=== PATIENT | female | born 1980 | race Caucasian/White ===

== ENCOUNTER → 2020-08-24 | Outpatient (CLI) | payer OTHER ==
[2019-05-16 15:59] VITALS: BP 110/56
[~2020-08-24] MED LIST: ACET325T9 PO; DOCU-153 PO; no home meds
--- NOTE | 2020-08-24 14:32 | RAD ---
PROCEDURE: US BREAST BILAT, MG DIAGNOSTIC BILAT HISTORY: The patient is 40 years old and is seen for palpable abnormality. COMPARISON: January 02, 2015 TECHNIQUE: CC and MLO views of both breasts were obtained. Images were processed by the [employer] computer-aided detection system. Targeted ultrasound was performed of the bilateral breasts. DENSITY: The breast parenchyma is heterogeneously dense. This may lower the sensitivity of mammograph y. FINDINGS: Right mammogram: Small rounded mass within the right breast retroareolar mid depth on MLO view. Right breast ultrasound: Cyst within the right breast 12:00 position 1 cm from the nipple measures 0. 7 cm corresponding with mammogram. Left breast mammogram: Well-circumscribed mass within the left breast corresponding with patient's pr obable concern measures approximately 2.4 x 2.0 cm 12:00 position, new compared to 2014. Left breast ultrasound: Solid hypoechoic mass within the left breast 12:00 position approximately 6 c m from the nipple with increased vascularity. There are angular margins. IMPRESSION: Solid hypoechoic left breast mass. Recommend ultrasound-guided biopsy to further evaluate. Results were discussed with the patient at time of study. Recommend ultrasound guided core needle biopsy. BI-RADS category 4 Findings suspicious for malignancy Our clinic nurse has been instructed to assist with communicating findings and recommendations to the patient's referring physician and in scheduling follow-up. Patient entered into a reminder system for annual screening mammogram. Electronically signed by: Jerardo Payton DO (08/24/2020 2:30 PM) [id number]
== END ==
LOC: MAMMO 14:39
PROVIDERS: ATTEND Family Medicine
DX: N63.22 Unspecified lump in the left breast, upper inner quadrant (principal); N64.59 Other signs and symptoms in breast
CPT/HCPCS: 77066; 76641-50

== ENCOUNTER → 2020-09-18 | Outpatient (CLI) | payer OTHER ==
[2019-05-16 15:59] VITALS: BP 110/56
--- NOTE | 2020-09-18 11:31 | RAD ---
EXAM: Sonographic guided left breast biopsy; left breast biopsy clip placement; left breast postbiops y mammogram. HISTORY: 40-year-old female presents for sonographic guided biopsy of a mass within the 12:00 positio n of the left breast demonstrated on a sonogram performed 08/24/2020. TECHNIQUE: The risks of the procedure discussed with the patient and written and verbal consent was o btained. A timeout was performed. Sonographic imaging of the left breast was performed and the lesion of concern measuring 2.7 cm at the 12:00 position 6 cm from nipple was identified. The skin overlyin g this region was sterilely prepped, draped and infiltrated with 1 percent lidocaine. Multiple core s amples were obtained through the lesion of concern with sonographic guidance. A biopsy clip was advan shirin into the lesion. Manual compression was maintained until hemostasis was achieved. A sterile arevalo ge was placed. A post biopsy mammogram demonstrates the biopsy clip in expected position. The patient tolerated the procedure without complication and was discharged in stable condition. IMPRESSION: Successful sonographic guided biopsy of a mass within the 12:00 position of the left karen st and biopsy clip placement. An addendum to this report will be submitted when pathology results are available. Electronically signed by: Vera Campbell MD (09/18/2020 11:29 AM) [id number]
--- NOTE | 2020-09-20 17:08 | PATHOLOGY ---
[facility] Accession Number: [id number] . 01 Material submitted: . breast - LEFT BREAST MASS. Modifiers: left, 12:00, 6 CM FROM NIPPLE . 01 Clinical history: . LEFT BREAST MASS 1200 6CM FROM NIPPLE 2.7CM LEFT BREAST BIOPSY . 02 Diagnosis: Breast "left mass 12:00, 6 CM FN", needle biopsy: - Fibroepithelial lesion. - Usual ductal hyperplasia. - Please see comment. (MLK:yasmany; 09/19/2020) QMS 09/20/2020 1604 Local . 02 Comment: The breast biopsy shows a proliferation of both stromal and glandular elements, with focal areas of usual ductal hyperplasia. The differential diagnosis includes fibroadenoma versus, less likely, a phyllodes tumor. Complete excision of the lesion may be of benefit to exclude the more aggressive lesion. . The case is seen in co-review with Dr. Julia Santiago, who concurs with the above diagnosis. . 02 Diagnosis provided by: . Kai Tellez MD, Pathologist NPI- [id number] . 03 Electronically signed: . Kai Tellez MD, Pathologist NPI- [id number] . 01 Gross description: . The specimen is received in formalin, labeled "Liss Beltran, left breast 12:00 6 cm from nipple". Received are multiple needle cores of fibrofatty tissue measuring 1.0 x 1.0 x 0.2 cm in aggregate dimensions. The specimen is submitted entirely in cassettes A1 through A3. The cold ischemic time is 1 minute. The total formalin fixation time is 11 hours and 1 minute. (CAA; 09/18/2020) QAC/QAC 09/18/2020 1547 Local . 02 Pathologist provided ICD-10: D24.2, N62 . 02 CPT . 618614 Specimen Comment: A courtesy copy of this report has been sent to [phone] Specimen Comment: [id number] Specimen Comment: Report sent to DR WILSON / DR MEADOWS Performed at: [facility] [place] [address] [id number] MD Francisco Treadwell MD Phone: [phone] Performed at: 02 [facility] [address] [place], [place] [id number] MD Cedric Spencer MD Phone: [phone] Performed at: 03 [facility] [address] [id number] MD Deep Rodriguez MD Phone: [phone]
== END | disposition home or self-care (01) ==
LOC: US 10:16
PROVIDERS: ATTEND Family Medicine
DX: N63.22 Unspecified lump in the left breast, upper inner quadrant (principal); R92.8 Other abnormal and inconclusive findings on diagnostic imaging of breast; Z90.49 Acquired absence of other specified parts of digestive tract; Z98.890 Other specified postprocedural states; Z79.899 Other long term (current) drug therapy; Z88.2 Allergy status to sulfonamides; Z88.5 Allergy status to narcotic agent
CPT/HCPCS: 19083; 77065; A4648

== ENCOUNTER 2021-02-26 07:50 | Day surgery (SDC) | payer OTHER ==
[~2021-02-26] VITALS: Ht 167.6 cm; Wt 155.0 kg
[~2021-02-26 07:50] MED LIST changes: +DOCU-148 PO; -DOCU-153 PO; +ETON1VAG VG; +HYDROmorphone 2 MG/ML VIAL IVP PRN; +IV RINGERS,LACTATED 1000ML 1,000 ML IV SCH; +MORPHINE SULFATE 2 MG/ML INJ. IVP PRN; +PROCHLORPERAZINE 10 MG/2 ML VIAL. IVP PRN; +fentaNYL PF VIAL 100 MCG/2 ML VIAL IVP PRN
[2021-02-26] MEDS ORDERED: ONDANSETRON PF 4 MG/2 ML VIAL. ONE (09:49)
[2021-02-26] MEDS ORDERED: DEXAMETHASONE SOD PHOS 4 MG/ML VIAL ONE ×2 (09:49→10:25)
[2021-02-26] MEDS ORDERED: MIDAZOLAM HCL/PF 2 MG/2 ML VIAL. ONE (09:49)
[2021-02-26] MEDS ORDERED: PROTAMINE 50 MG/5 ML VIAL. IV ONE (09:49)
[2021-02-26] MEDS ORDERED: LIDOCAINE 2% PF 5 ML VIAL. ONE (09:49)
[2021-02-26] MEDS ORDERED: SEVOFLURANE 61 TO 120 MINUTES. IH ONE (10:25)
[2021-02-26] MEDS ORDERED: fentaNYL PF VIAL 100 MCG/2 ML VIAL ONE (10:25)
[2021-02-26] MEDS ORDERED: PROPOFOL 10 MG/ML (20ML) VIAL. IV ONE (10:34)
[2021-02-26] MEDS ORDERED: BUPIVACAINE-EPI 0.5%-1:200000 MPF 30 ML VIAL. INJ ONE (10:50)
--- NOTE | 2021-02-26 11:00 | PDOC4 ---
Operative Note Operative Note Operative Note: Preoperative Diagnosis: Left breast mass Postoperative Diagnosis: Same Procedure: Left breast excisional biopsy Surgeon: Osmar Garment Examiner: ESTHER King Anesthesia: General EBL: 10 mL Specimen: Left breast mass to pathology, 3X3 cm Drains: None Complications: None Indication: The patient is a 40-year-old female who is referred following a recent core needle biopsy of left breast mass. This described a fibroepithelial lesion consistent with a fibroadenoma. However phyllodes tumor could not be ruled out and she was referred for consideration of an excisional biopsy. The risks of surgery were discussed which include bleeding, infection, recurrence, pain, anesthetic risk, potential need for additional surgery procedure. She understands and would like to proceed. Description: The patient was taken to the operating room and placed supine on the operating table. General anesthesia was performed. The left breast was prepped with ChloraPrep and draped in a standard surgical manner. An incision was made at the 12 o'clock position overlying the mass. Cautery dissection was carried down into the breast parenchyma. The mass was readily identified and mobilized from the surrounding tissues with a combination of cautery and sharp dissection. The mass was then fully excised and measured 3 x 3 cm. The specimen was sent to pathology for evaluation. Hemostasis was achieved with cautery. The subcutaneous tissue was closed with 3-0 Vicryl. The skin was approximated with 4-0 Monocryl and infiltrated with half percent Marcaine with epinephrine. Steri-Strips and a sterile dressing were applied. The patient tolerated the procedure well and was sent to the recovery room in stable condition. At the end of the case all counts were correct. JOSE ZURITA MD Feb 26, 2021 11:00
[2021-02-26] MEDS ORDERED: HYDR-2761 PO (11:01)
--- NOTE | 2021-02-26 11:03 | DISCH ---
DISCHARGE INSTRUCTIONS Condition on Discharge Condition on Discharge: Stable Activity After Discharge Activity Instructions for Disc: Resume previous activity Driving Instructions after Dis: Other, see below (no driving while taking pain meds) Diet after Discharge Diet after Discharge: Regular Wound Incision Care Wound/Incision Care: Other, see below (keep dressing clean and dry X 72 hours, may then remove and shower) Follow-Up Follow up with: Dr Zurita in office in 2 weeks, call for appointment [phone] JOSE ZURITA MD Feb 26, 2021 11:03
[2021-02-26 11:47] VITALS: BP 125/67
[2021-02-26] MEDS ORDERED: HYDROcodone/APAP 5/325MG 1 TAB TABLET PO ONE (12:00)
--- NOTE | 2021-02-27 14:07 | PATHOLOGY ---
[facility] Accession Number: [id number] . 01 Material submitted: . breast - LEFT BREAST MASS. Modifiers: left . 01 Clinical history: . EXCISION OF LEFT BREAST MASS . 02 Diagnosis: Breast tissue, left breast mass, excision: - Fibroadenoma. - Proliferative fibrocystic changes of adjacent breast tissue with focal moderate ductal epithelial hyperplasia and few scattered microcalcifications. . (JPM:mml; 02/27/2021) QLM 02/27/2021 1109 Local . 02 Comment: The fibroadenoma is fairly well-circumscribed, lobulated, and largely excised, but is focally present at the inked margin. There is no evidence of malignancy. . (JPM:mml; 02/27/2021) . 02 Electronically signed: . Cedric Spencer MD, Pathologist NPI- [id number] . 01 Gross description: . The specimen is received in formalin designated "Devin, Liss, left breast mass" and consists of a 7 g unoriented lumpectomy (3.2 x 2.9 x 1.7 cm) without a localization wire in place. The surgical margin is inked black and sectioning reveals smallwood-white to pink rubbery and fibrotic cut surface with minimal fat (less than 5%). No biopsy cavity is identified; however, a S-shaped biopsy clip is present. The specimen is submitted entirely in 11 cassettes. Cold ischemic time: 2 minutes Total time in formalin: 13 hours (ALGAACIQ;02/26/2021) DKA/DKA 02/26/2021 1647 Local . 02 Pathologist provided ICD-10: D24.2, N60.12, N62 . 02 CPT . 041513 Specimen Comment: A courtesy copy of this report has been sent to [phone] Specimen Comment: Report sent to Performed at: [address] [facility] [address], [place] [id number] MD Francisco Treadwell MD Phone: [phone] Performed at: 02 [facility] [address] [place], [place] [id number] MD Cedric Spencer MD Phone: [phone]
== END 2021-02-26 12:13 | disposition home or self-care (01) ==
LOC: SURG 07:50
PROVIDERS: ATTEND Surgery
DX: N63.20 Unspecified lump in the left breast, unspecified quadrant (principal); D24.2 Benign neoplasm of left breast; N60.12 Diffuse cystic mastopathy of left breast; N62 Hypertrophy of breast; E66.9 Obesity, unspecified; Z79.899 Other long term (current) drug therapy; Z90.49 Acquired absence of other specified parts of digestive tract; Z98.890 Other specified postprocedural states; Z88.0 Allergy status to penicillin; Z88.2 Allergy status to sulfonamides; Z88.5 Allergy status to narcotic agent
CPT/HCPCS: 19120; 81025; A6254; A6258; J1100; J1956; J2250; J2405; J2704; J3010; J2720